=== PATIENT | male | born 1985 | race African-American/Black ===

== ENCOUNTER 2017-01-14 16:57 | Emergency (ER) | payer SELFPAY ==
[~2017-01-14] VITALS: Ht 175.3 cm; Wt 79.0 kg
[2017-01-14 17:02] VITALS: BP 110/63
== END 2017-01-14 23:58 | disposition left against medical advice (07) ==
LOC: ER 16:57
DX: M25.511 Pain in right shoulder (principal); Z53.21 Procedure and treatment not carried out due to patient leaving prior to being seen by health care provider